=== PATIENT | female | born 1990 | race Caucasian/White ===

== ENCOUNTER 2017-10-05 09:07 | Inpatient (IN) | payer OTHER ==
[2017-10-05] MEDS ORDERED: Mag-Al Plus 1200 MG/1200 MG/120 MG/30 ML UDCUP ONE (09:27)
[2017-10-05] MEDS ORDERED: Lidocaine Viscous Sol 2% 15 ml UD Cup ONE (09:28)
[2017-10-05 09:56] LABS: #Basophils 0.1 thou/uL (0.0-0.2); #Eosinphils 0.1 thou/uL (0.0-0.7); #Lymphocytes 1.3 thou/uL (1.20-3.40); #Monocytes 1.1 thou/uL (0.11-0.59); #Neutrophils 11.5 thou/uL (1.40-6.50); %Basophils 0.4 % (0.0-1.0); %Eosinophils 0.4 % (0.0-10.0); %Lymphocytes 9.1 % (21.0-51.0); %Monocytes 7.6 % (0.0-10.0); Hematocrit 38.2 % (36.0-47.0); Mean Platelet Volume 8.1 fL (7.4-10.4); Red Blood Cell (RBC) Count 4.01 mill/uL (4.20-5.40)
[2017-10-05 10:08] LABS: ALT (SGPT) 18 U/L (8-55); AST (SGOT) 19 U/L (5-34); Alkaline Phosphatase 92 U/L (40-150); Anion Gap 13 mmol/L (10-20); BUN (Urea Nitrogen) 9 mg/dL (7.0-18.7); Bilirubin, Total 0.7 mg/dL (0.2-1.2); Calc. Creatinine Clearance 0 mL/min (70-130); Calcium 11.9 mg/dL (7.8-10.44); Carbon Dioxide 24 mmol/L (22-29); Chloride 106 mmol/L (98-107); Estimated GFR-MDRD 87; Globulin 3.6 g/dL (2.4-3.5); Protein, Total 7.9 g/dL (6.0-8.3)
[2017-10-05] MEDS ORDERED: Clindamycin/D5W 600 mg/50 ml Premix Bag ONE (10:35)
--- NOTE | 2017-10-05 10:35 | CT ---
POSTCONTRAST SOFT TISSUE NECK CT: Date: 10/05/17 HISTORY: Tickling in throat since August 2017. Difficulty swallowing. Previous tonsillectomy. COMPARISON: None. TECHNIQUE: Postcontrast soft tissue neck CT is performed in the axial plane. Reformatted images are submitted fo r interpretation. FINDINGS: Visualized brain parenchyma is unremarkable. Visualized orbits are unremarkable. There is adequate aeration of the visualized sinuses and mastoid air cells. Nasopharynx is normal. There is asymmetric fullness at the level of the palatine tonsils. There is a report of a previous tonsillectomy. Correlate clinically. There is asymmetric enhancement of the righ t tonsillary pillar with respect to the contralateral side. There is a 1.4 x 1.1 cm peripherally enha ncing centrally hypodense lesion at the level of the tonsillar pillar. An additional peripherally enh ancing centrally hypodense lesion is noted at the level of the right tongue base measuring 1.3 x 1.1 cm. There is a 0.9 x 0.8 cm peripherally enhancing centrally hypodense lesion deep to the right tonsi llar pillar. Small abscesses are favored. There is narrowing of the aerodigestive tract. Aerodigestiv e tract is still patent. Symmetric attenuation of the sternocleidomastoid muscles. Symmetric attenuation of the parotid and submandibular glands. Thyroid gland is unremarkable. There are enlarged bilateral Level II lymph nodes. Right Level II lymph node measures 1.2 x 1.9 cm. L eft Level II lymph node measures 0.7 x 1.5 cm. Additional scattered lymph nodes are noted. For exampl e, there is an enlarged right Level II-III lymph node measuring 1.7 x 1.3 cm. Central spinal canal and neural foramina are patent. Grossly, the great vessels of the neck are unrem arkable. Upper mediastinum and lung apices are unremarkable. IMPRESSION: 1. Extensive small abscesses and inflammatory change in the level of the right tonsillar pillar exte nding into the lymphoid tissue at the level of the right tongue base. 2. Enlarged bilateral soft tissue neck lymph nodes, presumed to be reactive. POS: H
[2017-10-05] MEDS ORDERED: Ondansetron HCl/PF 4 MG/2 ML Vial ONE (10:47)
[2017-10-05 13:05] VITALS: BMI 26.0
[2017-10-05] MEDS ORDERED: Ondansetron ODT 4 MG TAB SL PRN (13:49)
[2017-10-05] MEDS ORDERED: Ondansetron HCl/PF 4 MG/2 ML Vial IVP PRN ×2 (13:49→14:44)
[2017-10-05] MEDS ORDERED: Morphine PF 1 MG/ML SYR IVP PRN (13:56)
[2017-10-05] MEDS ORDERED: Morphine PF 1 MG/ML SYR IVP SCH (14:00)
[2017-10-05] MEDS ORDERED: Ketorolac Tromethamine 30 MG/ML VIAL IVP SCH (14:00)
[2017-10-05] MEDS ORDERED: Sodium Chloride 0.9% 1,000 ML IV SCH (14:00)
[2017-10-05] MEDS ORDERED: FLU VACC QS2017-18 36 mo. & older 0.5 ML SYRINGE IM ONE (14:15)
[2017-10-05] MEDS ORDERED: Ondansetron ODT 4 MG TAB PO PRN (14:44)
[2017-10-05] MEDS ORDERED: Acetaminophen 500 MG TAB PO PRN (14:44)
[2017-10-05] MEDS ORDERED: Chloraseptic Spray 180 ml Bottle PO PRN (14:44)
[2017-10-05] MEDS ORDERED: Piperacillin/Tazobactam 3.375 GM in Sodium Chloride 0.9% 100 ML IVPB SCH (15:00)
[2017-10-05] MEDS: Sodium Chloride 0.9% 1,000 ML IV SCH ×2 (15:04→23:36)
[2017-10-05] MEDS: Vancomycin HCl 1.25 GM in Sodium Chloride 0.9% 250 ML 250 ML IVPB SCH (15:12)
--- NOTE | 2017-10-05 15:51 | HP ---
PRIMARY CARE PHYSICIAN: Yordy flores. CHIEF COMPLAINT: Sore throat. HISTORY OF PRESENT ILLNESS: This is a 26-year-old female who presented to [facility] complaining of severe sore throat and difficulty swallowing. The patient states th e symptoms began in the last 48-72 hours with worsening pain localizing to the right side of her thro at and neck. The patient states that she went to the [facility] with in the last 5-7 days for left-sided ear pain, undergoing an ear irrigation with overall improvement i n symptoms. The patient states she began to develop a right-sided throat discomfort, swelling and fe alexandrea over the . The patient states the symptoms progressed with a 6/10 pain, diff iculty swallowing water and some fever and body aches. The patient admits to right-sided neck and ea r pain with some swelling to the right neck. The patient states she underwent an adenoidectomy in ap proximately 2003, but not a tonsillectomy. The patient denies any history of thyroid disorder. The patient does state she takes spironolactone for acne therapy prophylaxis, but has not been on any ant ibiotics. The patient apparently was given prednisone x3 tablets after the left ear irrigation withi n the last week. The patient denies any immunosuppression, recent exposure history or family members with similar symptoms. The patient does state it is difficult to swallow and speak due to the pain. The patient took ibuprofen for home remedy; however, this was unsuccessful in relieving her pain. In the emergency room, the patient underwent general evaluation including CT imaging of the soft tiss ues of the neck showing multiple small peritonsillar abscesses localizing to the right side. The pat ient received IV clindamycin as well as intravenous normal saline, morphine sulfate, Zofran and a GI cocktail. PAST MEDICAL HISTORY: Acne. PAST SURGICAL HISTORY: Status post adenoidectomy without tonsillectomy. CURRENT MEDICATIONS: Clindamycin topical and spironolactone 150 mg daily. ALLERGIES: No known drug allergies. FAMILY HISTORY: Mother with hypothyroidism. SOCIAL HISTORY: The patient originally from the [place] area. 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 No current alcohol, tobacco or illicit drug use. REVIEW OF SYSTEMS: The following complete review of systems was negative, unless otherwise mentioned in the HPI or below: Constitutional: Weight loss or gain, ability to conduct usual activities. Skin: Rash, itching. Eyes: Double vision, pain. ENT/Mouth: Nose bleeding, neck stiffness, pain, tenderness. Cardiovascular: Palpitations, dyspnea on exertion, orthopnea. Respiratory: Shortness of breath, wheezing, cough, hemoptysis, fever or night sweats. Gastrointestinal: Poor appetite, abdominal pain, heartburn, nausea, vomiting, constipation, or diarrhea. Genitourinary: Urgency, frequency, dysuria, nocturia. Musculoskeletal: Pain, swelling. Neurologic/Psychiatric: Anxiety, depression. Allergy/Immunologic: Skin rash, bleeding tendency. PHYSICAL EXAMINATION: VITAL SIGNS: On admission, blood pressure 113/74, pulse 89, respiratory rate 18, temperature 97.7 de grees Fahrenheit, O2 saturation 99% on room air. GENERAL APPEARANCE: This is a 26-year-old female, alert and oriented x3, pleasant, in no a cute distress. HEENT: Pupils are equal, round, and reactive to light and accommodation. Extraocular muscles are in tact. No scleral icterus, no conjunctival injection. Nares patent. OP is clear. Right peritonsill ar and tonsillar edema with erythema. Teeth in good repair. A left peritonsillar space with mild er ythema. NECK: Supple, with tenderness to palpation in the proximal sternocleidomastoid region and submandibu lar space with positive lymphadenopathy in the anterior cervical chain. No thyromegaly. Cervical sp ine with full active and passive range of motion without meningeal signs. CHEST: Lungs are clear to auscultation bilaterally. CARDIOVASCULAR: S1, S2 with tachycardia. ABDOMEN: Flat, soft, nontender, nondistended. Bowel sounds are positive in all 4 quadrants. There is no hepatosplenomegaly, no abdominal bruits, no rebound or guarding appreciated. EXTREMITIES: Warm and dry with fair turgor. No clubbing, cyanosis or asymmetric edema appreciated. Pulses palpable distally at the dorsalis pedis, posterior tibial, and popliteal arteries bilaterally . Capillary refill less than 2 seconds. NEUROLOGIC: Cranial nerves II-XII are grossly intact. No focal or lateralizing signs appreciated. PERTINENT LABORATORY AND X-RAY FINDINGS: Sodium 139, potassium 4.1, chloride 106, CO2 of 24, BUN 9, creatinine 0.80, glucose 97, calcium 11.9. LFTs within normal limits. Albumin 4.3. CBC showed a wh ite blood cell count 14, hemoglobin 13, hematocrit 38, platelet count 212 with 83% neutrophilia. Samuel up A streptococcal throat culture pending. Strep screen negative 10/05/2017. CT of the soft tissues of the neck dated 10/05/2017 showed extensive small abscesses and inflammatory changes in the level of the right tonsillar pillar, extending to lymphoid tissue to the level of right tongue base. Enlar ged bilateral soft tissue lymph nodes. ASSESSMENT AND PLAN: 1. Right peritonsillar abscess. The patient will be admitted to the medical unit. We will continue intravenous normal saline at 125 mL per hour. We will add vancomycin 1.25 grams IV q.12h. with leidy tional clindamycin 600 mg IV q.6 hours. We will consult ENT Service for further evaluation. Continu e Solu-Medrol 60 mg IV q.6h. Clear liquids as tolerated. 2. Leukocytosis with neutrophilia. Secondarily to #1. See #1 for management. Repeat CBC in the a. m. 3. Dysphagia secondarily to #1. Clear liquids as tolerated. Chloraseptic spray. Toradol 30 mg IV q.6h. Morphine sulfate 2 mg IV q.3 hours p.r.n. pain. 4. Prophylaxis. Sequential compression devices while in bed. Pepcid 20 mg IV q.12h. Influenza vacc ine prior to discharge. 5. Code status is full. Surrogate medical decision maker is Alfa Mcguire.
[2017-10-05] MEDS: Clindamycin/D5W 600 MG in Premix Bag 1 BAG IVPB SCH ×2 (16:55→23:36)
[2017-10-05] MEDS: Ketorolac Tromethamine 30 MG/ML VIAL IVP SCH ×2 (16:56→23:38)
[2017-10-05] MEDS: Famotidine/PF 20 mg/2ml Vial SLOW IVP SCH (20:55)
[2017-10-06] MEDS: Vancomycin HCl 1.25 GM in Sodium Chloride 0.9% 250 ML 250 ML IVPB SCH (02:53)
[2017-10-06 05:38] LABS: Band 4 % (5-11); Hematocrit 35.9 % (36.0-47.0); Macrocytosis SLIGHT = 6-15 cells (100X) (0-5/hpf); Mean Platelet Volume 7.7 fL (7.4-10.4); Metamyelocyte 2 % (0-0); Neutrophil 83 % (42-75); Reactive Lymphocytes 2 % (0-10); Red Blood Cell (RBC) Count 3.58 mill/uL (4.20-5.40); White Blood Cell (WBC) Count 14.6 thou/uL (4.8-10.8)
[2017-10-06] MEDS: Ketorolac Tromethamine 30 MG/ML VIAL IVP SCH ×2 (05:47→12:25)
[2017-10-06] MEDS: methylPREDNISolone Sod Succ/PF 125 MG/2 ML VIAL IVP SCH ×2 (05:50→12:24)
[2017-10-06] MEDS: Clindamycin/D5W 600 MG in Premix Bag 1 BAG IVPB SCH ×2 (05:53→12:21)
[2017-10-06 07:32] VITALS: BP 100/62; TEMP 97.8
[2017-10-06] MEDS: Famotidine/PF 20 mg/2ml Vial SLOW IVP SCH (09:26)
[2017-10-06] MEDS: Sodium Chloride 0.9% 1,000 ML IV SCH (12:55)
--- NOTE | 2017-10-06 14:45 | PDOC.PN ---
- Subjective Encounter Start Date: 10/06/17 Encounter Start Time: 07:30 Subjective: is able to swallow liquid diet -: throat pain is slightly better -: no trouble breathing - Objective Resuscitation Status: Resuscitation Status FULL:Full Resuscitation MAR Reviewed: Yes Vital Signs & Weight: Vital Signs (12 hours) Temp Pulse Resp BP Pulse Ox 10/06/17 09:10 97.8 F 69 18 10/06/17 07:29 97.8 F 69 18 100/62 98 10/06/17 04:00 97.6 F 72 16 94/66 97 I&O: 10/05/17 10/06/17 10/07/17 06:59 06:59 06:59 Intake Total 500 Balance 500 Result Diagrams: 10/06/17 03:29 10/05/17 09:40 Phys Exam - Physical Examination HEENT: PERRLA, moist MMs Neck: no JVD has hypertrophic tonsils b/l with exudates Respiratory: no wheezing, no rales Cardiovascular: RRR, no significant murmur Gastrointestinal: soft, non-tender, positive bowel sounds Musculoskeletal: no edema, pulses present Neurological: non-focal, moves all 4 limbs Psychiatric: A&O x 3 Dx/Plan (1) Acute tonsillitis Code(s): J03.90 - ACUTE TONSILLITIS, UNSPECIFIED Status: Acute Qualifiers: Pharyngitis/tonsillitis etiology: unspecified etiology Qualified Code(s): J03.90 - Acute tonsillitis, unspecified - Plan is able to tolerate liq diet and breathing better -: d/w [employer] with who evaluated patient -: to f/u with in his clinic tomorrow -: no surgery for now, continue clinda and motrin -: dc pt home per ENT advice * .
--- NOTE | 2017-10-06 22:15 | DIS ---
DATE OF ADMISSION: 10/05/2017 DATE OF DISCHARGE: 10/06/2017 DISCHARGE DISPOSITION: Home. PRIMARY DISCHARGE DIAGNOSES: 1. Bilateral hypertrophic tonsillitis with exudates. 2. Dysphagia secondary to bilateral hypertrophic tonsillitis with exudates, resolving. PROCEDURES DONE DURING HOSPITALIZATION: The patient has had CT of the neck done, which showed extens heidi small abscesses and inflammatory change in the level of the right tonsillar pillar extending into lymphoid tissue at the level of the right tongue base. There was enlarged bilateral soft tissue nec k lymph nodes presumed to be reactive. Throat swab for Strep was negative. Had a white count of 14 with 82% neutrophils on the day of admission. H&H 11 and 35 with platelet count of 196, BUN 9, creat inine 0.8. DISCHARGE MEDICATIONS: Clindamycin 300 mg p.o. 3 times daily for another 10 days, Motrin 400 mg p.o. three times daily p.r.n. for pain. ALLERGIES: No known drug allergies. DISCHARGE PLAN: Patient to follow up with Dr. Dutta, ENT surgeon, tomorrow. BRIEF COURSE DURING HOSPITALIZATION: Patient initially got admitted on the with complaints of s ore throat and difficulty swallowing. She has had this for nearly a week off and on with left ear pa in. She has had a CT soft tissue neck. CAT scan done, which showed suspected right peritonsillar ab scess. She was evaluated by Dr. Dutta. Patient this morning is able to swallow liquids and is not having any difficulty breathing. Per ENT surgeon's advice, the patient is being discharged to home t o follow up with him in his office tomorrow. She needs to continue clindamycin and Motrin as prescri bed. Patient is hemodynamically stable. Please see a [id number] documentation on [facility] for the day of discharge.
== END 2017-10-06 13:30 | disposition home or self-care (01) | DRG 153 ==
LOC: SCSER 09:07 → T4-B 12:58
PROVIDERS: ADMIT Family Medicine; ATTEND Family Medicine
DX: J03.90 Acute tonsillitis, unspecified (principal); R13.10 Dysphagia, unspecified; J36 Peritonsillar abscess; J35.01 Chronic tonsillitis
CPT/HCPCS: 36415; 70491; 80053; 85007; 85025; 85027; 87081; 87430; 96361; 96365; 96375; J1885; J2270; J2405; J2920; J2930; J3370; J3490; J7050; S0028